=== PATIENT | male | born 1950 | race Hispanic/Latino ===

== ENCOUNTER 2023-12-29 14:26 | Outpatient (CLI) | payer MEDICARE | END 2023-12-29 14:27 | disposition home or self-care (01) | LOC: ULT 14:26 | PROVIDERS: ATTEND Urology | DX: R35.0 Frequency of micturition (principal) | CPT/HCPCS: 76770 ==

== ENCOUNTER 2024-12-22 08:06 | Outpatient (CLI) | payer OTHER | END 2024-12-22 08:07 | disposition home or self-care (01) | LOC: BICCT 08:06 | PROVIDERS: ATTEND Family Medicine | DX: R91.1 Solitary pulmonary nodule (principal) | CPT/HCPCS: 71250 ==